=== PATIENT | female | born 1965 | race Hispanic/Latino ===

== ENCOUNTER 2021-05-03 12:56 | Emergency (ER) | payer OTHER ==
[~2021-05-03] VITALS: Ht 154.9 cm; Wt 70.3 kg
[2021-05-03 12:58] VITALS: BP 142/94
[2021-05-03] MEDS ORDERED: PSEU120T62 PO (14:47)
[2021-05-03] MEDS ORDERED: AZIT250T9 PO (14:47)
[2021-05-03] MEDS ORDERED: PHEN118L19 PO (14:47)
[2021-05-03] MEDS ORDERED: ALBU8.5H8 IH (14:47)
[2021-05-03] MEDS ORDERED: ACET-3194 PO (14:47)
[2021-05-03] MEDS ORDERED: IBUP-2070 PO (14:47)
== END 2021-05-03 15:08 | disposition home or self-care (01) ==
LOC: EDH 12:56
DX: U07.1 COVID-19 (principal); I10 Essential (primary) hypertension; Z79.1 Long term (current) use of non-steroidal anti-inflammatories (NSAID); Z79.899 Other long term (current) drug therapy
CPT/HCPCS: 87635; 87804 ×2; 99283; C9803